=== PATIENT | male | born 1985 | race Caucasian/White ===

== ENCOUNTER 2024-04-22 14:51 | Outpatient (AMB) | payer OTHER, SELFPAY ==
--- NOTE | 2024-04-22 15:17 | A.OFFPC_ITS ---
Vital Signs 04/22/24 15:18 04/22/24 15:26 04/22/24 15:49 Height 5 ft 11.75 in Weight 221 lb 6 oz BMI 30.2 BP 160/120 H 156/118 H 138/92 H Blood Pressure Location Lt brachial Rt brachial Lt brachial Position Sitting Sitting Sitting Pulse 73 Pulse Source Pulse Oximeter Pulse Oximetry (%) 98 Oxygen Delivery Method Room Air Intake Visit Reasons: establish care Allergies No Known Allergies Allergy (Verified 04/22/24 15:30) Medication List - Last Reconciled 04/22/24 by Ledy Jose PA-C albuterol sulfate 90 mcg/actuation 2 puffs inhalation Q6H PRN fluticasone propionate 50 mcg/actuation (Flonase Allergy Relief) 2 sprays intranasal DAILY loratadine (Claritin) 10 mg PO DAILY Dental Screening Dental Screen Date: 04/22/24 Did you have a dental visit in the last 12 months?: Yes Did you have a dental problem in the last 6 months where you did not have access to dental care?: No Was dental information given to patient?: Patient has dentist HPI establish care HPI Details 38-year-old male coming to the office fo r the 1st time. Patient is not known to [facility]. Presenting with asthma, insomnia, and hypertension. Chronic asthma management includes daily use of albuterol due to lack of insurance coverage for other inhalers. Prolonged asthma control is needed. Previously treated with ICS but has not had one in many years. He reports elevated blood pressure, attributing it partly to lifestyle factors such as high-sodium intake and stress, with a strong family history of hypertension. Insomnia issues have been prominent since the COVID-19 pandemic, necessitating the informal use of trazodone for restful sleep which he has been getting from a family member. The patient is undergoing therapy for depression, engaging in regular sessions, and showing some improvement in mood balance, though he occasionally experiences sadness. [facility] Medical History (Updated 04/22/24 @ 15:41 by Ledy Jose PA-C) Testicular torsion Family History Other Diabetes FH: mental illness Social History Housing: Apartment Patient Tobacco Use Status: Never used Tobacco e-Cigarette/Vaping Use: Never Used Second Hand Smoke Exposure: No service: No Current occupational status: employed Current occupational exposures/hazards: No Cognitive needs: No Hearing needs: No Vision needs: Yes Questionnaire PHQ-9 Over the last 2 weeks, how often have you been bothered by any of the following problems? 1. Little interest or pleasure in doing things: not at all 2. Feeling down, depressed, or hopeless: several days 3. Trouble falling or staying asleep, or sleeping too much: several days 4. Feeling tired or having little energy: several days 5. Poor appetite or overeating: not at all 6. Feeling bad about yourself - or that you are a failure or have let yourself or your family down: several days 7. Trouble concentrating on things, such as reading the newspaper or watching television: not at all 8. Moving or speaking so slowly that other people could have noticed. Or the opposite - being so fidgety or restless that you have been moving around a lot more than usual: not at all 9. Thoughts that you would be better off or of hurting yourself in some way: not at all Total score: 4 Depression Screening Interpretation: Positive Depression Screening Follow-up: Existing condition and In treatment Depression Screening Done: Yes Source: Developed by Drs. Taurus Babcock, Ansley Stover, Javon Rock and colleagues, with an educational krissy from [employer]. Thrive Questionnaire Date Thrive assessed: 04/22/24 I am a: Patient What is your living situation today?: I have a steady place to live Within the past 12 months, did the food you bought not last and you didn't have the money to get more?: Never true Within the past 12 months, did you worry whether your food would run out before you got money to buy more?: Never true Do you have trouble paying for medicines?: No Do you have trouble getting transportation to medical appointments?: No Do you have trouble paying your heating and electricity bill?: No Do you have trouble taking care of your child, family member or friend?: No Do you have trouble with day-to-day activities such as bathing, preparing meals, shopping, managing finances, etc.?: No Are you currently unemployed and looking for a job?: No Are you interested in more education?: Yes Please select the resources that you would like help with: None Currently or been in a relationship where the following occur: No concerns reported THRIVE Score: 0 AUDIT C Alcohol Use Questionnaire (AUDIT-C) 1. How often do you have a drink containing alcohol?: 2-3 times a week 2. How many drinks containing alcohol do you have on a typical day when you are drinking?: 1 or 2 3. How often do you have six or more drinks on one occasion?: Less than monthly Total Score: 4 FÁTIMA-7 AMB Questionnaire FÁTIMA-7 Date FÁTIMA - 7 assessed: 04/22/24 Feeling nervous, anxious, or on edge: 2 = More than half the days Not being able to stop or control worryin = More than half the days Worrying too much about different things: 2 = More than half the days Trouble relaxin = Several days Being so restless that it is hard to sit still: 0 = Not at all Becoming easily annoyed or irritable: 0 = Not at all Feeling afraid as if something awful might happen: 0 = Not at all Total FÁTIMA-7 score (0-4 normal; 5-9 mild; 10-14 moderate; 15-21 severe): 7 Source: Developed by Drs. Taurus Babcock, Ansley Stover, Javon Rock and colleagues, with an educational krissy from [employer]. FÁTIMA-7 Assessment Billing FÁTIMA-7 Assessment Tool: FÁTIMA-7 Assessment 09435 Review of Systems Const Denies body aches, Denies chills, Denies fever(s), Denies headache(s) and Denies poor appetite Eyes Reports no additional complaints and Reports requires corrective lenses ENT Denies dizziness and Denies headache(s) Card Denies chest pain, Denies syncope, Denies lightheadedness and Denies dyspnea Resp Denies cough and Denies dyspnea GI Denies abdominal pain, Denies nausea and Denies vomiting Reports no additional complaints Musc Reports no additional complaints and Denies abnormal gait Skin/Breast Reports system reviewed and no additional complaints, except as documented Neuro Denies abnormal gait, Denies dizziness, Denies syncope and Denies headache(s) Psych Reports no additional complaints Physical exam (Primary Care) Vital Signs: Last Vital Signs Pulse 73 04/22/24 15:18 BP 138/92 H 04/22/24 15:49 Pulse Ox 98 04/22/24 15:18 Oxygen Delivery Method Room Air 04/22/24 15:18 BMI result Body Mass Index 30.2 Tobacco/Smoking Status: Tobacco use Status Patient Tobacco Use Status Never used Tobacco 04/22/24 15:26 e-Cigarette/Vaping Use Never Used 04/22/24 15:26 PHQ-9: PHQ-9 Score PHQ-9: Total score 4 04/22/24 15:38 Depression Screening Interpretation: Positive Depression Screening Follow-up: Existing condition and In treatment Thrive Assessment: Date of Thrive Assessment Date Thrive assessed 04/22/24 04/22/24 15:26 Currently or been in a relationship where the following occur: No concerns reported Const General: cooperative, healthy appearing, comfortable and no acute distress Orientation/consciousness: patient oriented x3 HENMT Head: Yes normocephalic Ears: hearing grossly normal bilaterally General nose exam: Normal external nose present Eyes General: appearance normal, both eyes and all related structures Conjunctivae: conjunctivae normal Neck Neck: Yes full ROM and Yes no lymphadenopathy Resp Effort & Inspection: normal respiratory effort Auscultation: clear to auscultation bilaterally, no crackles, no rales, no rhonchi and no wheezes Cardio Rate: regular rate Rhythm: regular rhythm Skin General skin exam: no rashes or lesions noted Neuro General: patient oriented x3 Gait exam (Neuro): Normal gait present Extrem General: Yes normal to inspection, Yes full ROM and No edema Psych Affect: normal affect Attitude: cooperative Insight: Good insight present (Psych) Judgement: Good judgement present (Psych) Coding Level of Care Code New Pt Level 4 (35548) Diagnoses Asthma J45.909 Elevated blood pressure reading without diagnosis of hypertension R03.0 Depression F32.A Plantar warts B07.0 Screening for hypercholesterolemia Z13.220 Additional Codes FÁTIMA-7 Assessment Billing - FÁTIMA-7 Assessment Tool: FÁTIMA-7 Assessment 08876 ([id number]) Assessment & Plan Assessment & Plan (1) Asthma: Code(s): J45.909 - Unspecified asthma, uncomplicated Category: Medical Plan: Will restart patient on his Advair inhaler and continue to use albuterol as needed. Avoid triggers such as allergies. (2) Elevated blood pressure reading without diagnosis of hypertension: Code(s): R03.0 - Elevated blood-pressure reading, without diagnosis of hypertension Category: Medical Plan: Advised patient to begin taking blood pressures at home and bring log to next visit. Avoid salt intake and encourage healthy diet and regular exercise. (3) Depression: Comment: therapist weekly Code(s): F32.A - Depression, unspecified Category: Medical Plan: He will be prescribed trazodone for nightly use to improve his depression and anxiety complicated by insomnia. Continue to follow with counselor weekly. (4) Plantar warts: Code(s): B07.0 - Plantar wart Category: Medical Plan: Patient having plantar warts referral placed to Dermatology for removal (5) Screening for hypercholesterolemia: Code(s): Z13.220 - Encounter for screening for lipoid disorders Category: Medical Plan: Blood work ordered Plan Patient was informed and verbally consented to the use of an ambient scribe for clinic note documentation during this visit. This note was constructed using voice recognition software. While every effort has been made to ensure accuracy and storehouse clerk, still areas may have been included sometimes these areas may affect the content or meeting of the given symptoms. Total time spent caring for the patient today was 30 minutes. This includes time spent before the visit reviewing the chart, time spent during the visit, and time spent after the visit and documentation. Orders: Orders Comprehensive Met. Panel Today Z00.00 - Encounter for general adult medical examination without abnormal findings TSH reflex Free T4 Today Z00.00 - Encounter for general adult medical examination without abnormal findings Vitamin B12 and Folate Today Z00.00 - Encounter for general adult medical examination without abnormal findings Vitamin D 25-OH Total Today Z00.00 - Encounter for general adult medical examination without abnormal findings Lipid Panel Today Z13.220 - Encounter for screening for lipoid disorders Complete Blood Count Auto Diff Today Z00.00 - Encounter for general adult medical examination without abnormal findings Free T4 (Free Thyroxine) Today Z00.00 - Encounter for general adult medical examination without abnormal findings Referrals Dermatology Referral B07.0 - Plantar wart Medications: New fluticasone propion-salmeterol 100-50 mcg/dose (Advair Diskus) 1 inh inhalation BID 60 ea 2RF trazodone 50 mg PO BEDTIME 90 tabs 1RF albuterol sulfate 90 mcg/actuation 2 puffs inhalation Q6H PRN 8.5 grams 0RF bronchospasm
[2024-04-22 15:18] VITALS: BP 160/120; PULSE 73; O2SAT 98; BMI 30.2
[2024-04-22 15:26] VITALS: BP 156/118
[2024-04-22 15:49] VITALS: BP 138/92
== END 2024-04-22 15:53 | disposition home or self-care (01) ==
DX: J45.909 Unspecified asthma, uncomplicated (principal); R03.0 Elevated blood-pressure reading, without diagnosis of hypertension; F32.A Depression, unspecified; B07.0 Plantar wart; Z13.220 Encounter for screening for lipoid disorders

== ENCOUNTER → 2024-04-22 14:51 | Outpatient (BNVA) | payer OTHER, SELFPAY | DX: J45.909 Unspecified asthma, uncomplicated (principal); R03.0 Elevated blood-pressure reading, without diagnosis of hypertension; F32.A Depression, unspecified; B07.0 Plantar wart | CPT/HCPCS: 96127; 99202 ==

== ENCOUNTER 2024-06-03 15:01 | Outpatient (AMB) | payer OTHER, SELFPAY ==
--- NOTE | 2024-06-03 15:14 | MHC.PC.OV ---
Vital Signs 06/03/24 15:16 06/03/24 15:36 Height 5 ft 11.75 in Weight 217 lb 6 oz BMI 29.7 BP 120/70 140/98 H Blood Pressure Location Lt brachial Lt brachial Position Sitting Sitting Pulse 66 Pulse Source Pulse Oximeter Temp 97.3 F Temp Source Temporal Artery Scan Pulse Oximetry (%) 99 Oxygen Delivery Method Room Air Intake Visit Reasons: pe Intake Note: Patient is here today for a physical. Maintenance Journeyman Required: No Label Drier: Not Required per policy Accompanied by: Self / Same As Patient Allergies No Known Allergies Allergy (Verified 06/03/24 15:33) Medication List - Last Reconciled 06/03/24 by Ledy Jose PA-C albuterol sulfate 90 mcg/actuation 2 puffs inhalation Q6H PRN fluticasone propion-salmeterol 100-50 mcg/dose (Advair Diskus) 1 inh inhalation BID fluticasone propionate 50 mcg/actuation (Flonase Allergy Relief) 2 sprays intranasal DAILY loratadine (Claritin) 10 mg PO DAILY trazodone 50 mg PO BEDTIME Tobacco use date assessed: 06/03/24 Dental Screening Dental Screen Date: 04/22/24 HPI pe HPI Details 38-year-old male with past medical history of asthma, depression and elevated blood pressure last seen 03/2024 coming in for annual exam. Vaccine: covid and flu and is due for Tdap The patient is a 38-year-old male presenting with essential hypertension and mental health follow-up. Has experienced high blood pressure, with notable fluctuations and peaks around 200 mmHg systolic, particularly on Fridays. Denies symptoms such as chest pain or shortness of breath. Manages depression and anxiety with trazodone, reporting some improvement in quality of sleep and mood stability. Continues to experience anxiety but notes no recent changes in medication regimen or adverse side effects. Breathing has improved since restarting his Advair PFSH Medical History Testicular torsion Family History Other Diabetes FH: mental illness Mental health disorder Social History Housing: Apartment Alcohol intake: never Patient Tobacco Use Status: Never used Tobacco e-Cigarette/Vaping Use: Never Used Second Hand Smoke Exposure: No service: No Current occupational status: employed Current occupational exposures/hazards: No Cognitive needs: No Hearing needs: No Vision needs: Yes Questionnaire Thrive Questionnaire Date Thrive assessed: 04/17/24 I am a: Patient What is your living situation today?: I have a steady place to live Within the past 12 months, did the food you bought not last and you didn't have the money to get more?: Never true Within the past 12 months, did you worry whether your food would run out before you got money to buy more?: Never true Do you have trouble paying for medicines?: No Do you have trouble getting transportation to medical appointments?: No Do you have trouble paying your heating and electricity bill?: No Do you have trouble taking care of your child, family member or friend?: No Do you have trouble with day-to-day activities such as bathing, preparing meals, shopping, managing finances, etc.?: No Are you currently unemployed and looking for a job?: No Are you interested in more education?: Yes Please select the resources that you would like help with: None Currently or been in a relationship where the following occur: No concerns reported THRIVE Score: 0 FÁTIMA-7 AMB Questionnaire FÁTIMA-7 Date FÁTIMA - 7 assessed: 04/22/24 Source: Developed by Drs. Taurus Babcock, Ansley Stover, Javon Rock and colleagues, with an educational krissy from [employer]. Review of Systems Const Denies body aches, Denies fatigue, Denies fever(s), Denies frequent falls, Denies headache(s) and Denies weakness Eyes Reports no additional complaints, Denies change in vision and Reports requires corrective lenses ENT Denies dysphagia, Denies dizziness, Denies facial pain, Denies headache(s) and Denies odynophagia Card Denies chest pain, Denies syncope, Denies irregular heart rhythm, Denies leg edema, Denies lightheadedness and Denies dyspnea Resp Denies cough and Denies dyspnea GI Denies abdominal pain, Denies constipation, Denies dysphagia, Denies dyspepsia, Denies diarrhea, Denies nausea, Denies odynophagia and Denies vomiting Denies dysuria, Denies urinary frequency, Denies urinary hesitancy and Denies urinary urgency Musc Denies back pain and Denies myalgias Skin/Breast Reports system reviewed and no additional complaints, except as documented Neuro Denies dizziness, Denies syncope, Denies frequent falls, Denies headache(s) and Denies weakness Psych Reports no additional complaints Endo Denies fatigue Physical exam (Primary Care) Vital Signs: Last Vital Signs Temp 97.3 F 06/03/24 15:16 Pulse 66 06/03/24 15:16 BP 140/98 H 06/03/24 15:36 Pulse Ox 99 06/03/24 15:16 Oxygen Delivery Method Room Air 06/03/24 15:16 BMI result Body Mass Index 29.7 Tobacco/Smoking Status: Tobacco use Status Tobacco use date assessed 06/03/24 06/03/24 15:19 Patient Tobacco Use Status Never used Tobacco 06/03/24 15:19 e-Cigarette/Vaping Use Never Used 06/03/24 15:19 Thrive Assessment: Date of Thrive Assessment Date Thrive assessed 04/17/24 06/03/24 15:19 Currently or been in a relationship where the following occur: No concerns reported Const General: cooperative, healthy appearing, comfortable and no acute distress Orientation/consciousness: patient oriented x3 HENMT Head: Yes normocephalic Ears: hearing grossly normal bilaterally, external ears normal, TM's normal bilaterally and EAC's normal General nose exam: Normal external nose present Face and sinus: Yes normal facial exam and Yes sinuses nontender Mouth: Normal oral and palatal mucosa present and tongue normal Throat: Yes posterior oropharynx normal Eyes General: appearance normal, both eyes and all related structures Conjunctivae: conjunctivae normal Pupils: Equal, round and reactive pupils present EOM: EOMs intact bilaterally and No Nystagmus present Neck Neck: Yes normal visual inspection, Yes full ROM and Yes no lymphadenopathy Chest Chest palpation & inspection: normal inspection of the chest Resp Effort & Inspection: normal respiratory effort Auscultation: clear to auscultation bilaterally, no crackles, no rales, no rhonchi, no wheezes and breath sounds present Cardio Rate: regular rate Rhythm: regular rhythm Peripheral pulses: radial pulses present and dorsalis pedis present GI Inspection: Yes normal to inspection and No Abdominal wall edema Palpation (GI): Soft to palpation, not firm and nontender Auscultation: normal bowel sounds Rectal Exam - Male: Yes deferred General: Yes no CVA tenderness Back/Spine/Pelvis Back: no CVA tenderness Skin General skin exam: no rashes or lesions noted Neuro General: patient oriented x3 Cranial nerves: Yes Equal, round and reactive pupils present, Yes Midline tongue present, Yes Ability to bilaterally elevate shoulders present and No Nystagmus present Gait exam (Neuro): Normal gait present Extrem General: Yes normal to inspection, Yes full ROM, No no pedal edema and No edema Psych Speech and movement: Normal speech and movement present Affect: normal affect Insight: Good insight present (Psych) Judgement: Good judgement present (Psych) Immunizations Boostrix Tdap 2.5 Lf unit-8 mcg-5 Lf/0.5 mL intramuscular syringe Performing Provider: Ledy Jose PA-C [facility] Administered by: Korin Casillas LPN on 06/03/24 15:54 Dose Route Admin Location Dispensed Lot Number Expiration Date [facility] Fitness Supervisor 0.5 mL IM Right Deltoid 0.5 mL [id number] 08/09/26 21122-962-61 redIT VIS Given Date VIS Provided VIS Publication Date 06/03/24 Single Vaccine 20 Eligibility Eligibility Date Funding Source Not [facility] Eligible 06/03/24 Private Coding Level of Care Code Est Pt Level 3 (46716) Est Pt Prev Care 18-39y(00481) Diagnoses Plantar warts B07.0 Depression F32.A Asthma J45.909 Annual physical exam Z00.00 Hypertension I10 Insomnia G47.00 Assessment & Plan Assessment & Plan (1) Plantar warts: Code(s): B07.0 - Plantar wart Category: Medical Plan: Patient having plantar warts referral placed to Dermatology for removal at last visit. (2) Depression: Comment: therapist weekly Code(s): F32.A - Depression, unspecified Category: Medical Plan: Patient was started on trazodone at his last visit for anxiety and depression. Feels good on the 50mg Trazodone at this time and does not want to increase at this time. Continue to follow with counselor. (3) Asthma: Code(s): J45.909 - Unspecified asthma, uncomplicated Category: Medical Plan: Asthma currently controlled on present medications. Continue on Advair and albuterol as needed. Avoid triggers such as allergies. Avoid triggers such as allergies. (4) Annual physical exam: Code(s): Z00.00 - Encounter for general adult medical examination without abnormal findings Category: Medical Plan: Patient is up-to-date on all recommended routine screenings and vaccinations for his age. Healthy diet and regular exercise is encouraged. (5) Hypertension: Code(s): I10 - Essential (primary) hypertension Category: Medical Plan: Blood pressure readings elevated on his at-home log. Plan to start on Lisinopril 5mg for blood pressure management. Avoid salt intake and encourage healthy diet and regular exercise. (6) Insomnia: Code(s): G47.00 - Insomnia, unspecified Category: Medical Plan: Continue on trazodone 50 mg finds this medication beneficial. Plan Ordered a fasting cholesterol test to re-evaluate lipid levels and potential treatment alterations. Emphasized home monitoring of blood pressure and return precautions for side effects like cough or swelling. Follow-up scheduled in six weeks to reassess blood pressure control and mental health status, and address further cholesterol management post-lab results. This note was constructed using voice recognition software. While every effort has been made to ensure accuracy and machine former, still areas may have been included sometimes these areas may affect the content or meeting of the given symptoms. Total time spent caring for the patient today was 30 minutes. This includes time spent before the visit reviewing the chart, time spent during the visit, and time spent after the visit and documentation. Patient was informed and verbally consented to the use of an ambient scribe for clinic note documentation during this visit. Orders: Orders TDaP Immunization Today Z23 - Encounter for immunization Medications: New lisinopril 5 mg PO DAILY 60 tabs 0RF
[2024-06-03 15:16] VITALS: BP 120/70; PULSE 66; TEMP 36.3; O2SAT 99; BMI 29.7
[2024-06-03 15:36] VITALS: BP 140/98
== END 2024-06-03 15:56 | disposition home or self-care (01) ==
LOC: HO.HMCH 15:01
DX: Z00.00 Encounter for general adult medical examination without abnormal findings (principal); I10 Essential (primary) hypertension; F32.A Depression, unspecified; J45.909 Unspecified asthma, uncomplicated; B07.0 Plantar wart; G47.00 Insomnia, unspecified; Z23 Encounter for immunization

== ENCOUNTER → 2024-06-03 15:01 | Outpatient (BNVA) | payer OTHER, SELFPAY | DX: Z00.00 Encounter for general adult medical examination without abnormal findings (principal); J45.909 Unspecified asthma, uncomplicated; B07.0 Plantar wart; F32.A Depression, unspecified; I10 Essential (primary) hypertension; G47.00 Insomnia, unspecified; Z23 Encounter for immunization | CPT/HCPCS: 90471; 90715; 99212; 99395 ==

== ENCOUNTER 2024-07-11 06:59 | Outpatient (REF) | payer OTHER, SELFPAY ==
[2024-07-11 07:13] LABS: MANUAL DIFF FLAG NO
[2024-07-11 07:48] LABS: Basophils Percent Auto 0.2 % (0-2); Eosinophils Absolute Auto 0.2 X10*3/uL (0.0-0.4); Eosinophils Percent Auto 3.6 % (0-4); Hematocrit 44.3 % (42.0-52.0); Hemoglobin 15.3 g/dl (14.0-18.0); Imm Gran Abs Auto 0.02 X10*3/uL (0.00-0.03); Imm Gran Pct Auto 0.4 % (0.0-0.4); Lymphocytes Absolute Auto 1.5 X10*3/uL (1.2-4.9); Lymphocytes Percent Auto 30.7 % (20-40); Mean Corpuscular HGB Conc 34.5 g/dl (31.0-36.0); Mean Corpuscular Hemoglobin 31.5 pg (27.0-33.0); Mean Corpuscular Volume 91.2 fL (80.0-98.0); Mean Platelet Volume 8.8 fL (9.4-12.4); Monocytes Absolute Auto 0.7 X10*3/uL (0.1-1.2); Monocytes Percent Auto 13.9 % (2-11); Neutrophils Absolute Auto 2.6 x10*3/uL (2.0-8.3); Neutrophils Percent Auto 51.2 % (45-73); Platelet Count 266 X10*3/uL (160-400); Red Blood Count 4.86 X10*6/uL (4.60-5.80); Red Cell Distribution Width 11.8 % (11.0-16.0)
[2024-07-11 08:30] LABS: Alanine Aminotransferase 184 U/L (0-40); Albumin Level 4.6 g/dL (3.5-5.0); Alkaline Phosphatase 66 U/L (39-117); Anion Gap 10 (12-20); Aspartate Amino Transferase 461 U/L (5-37); Bilirubin Total 0.4 mg/dL (0.0-1.0); Blood Urea Nitrogen 18 mg/dL (9-16); Calcium 9.8 mg/dL (8.4-10.2); Carbon Dioxide 26 mmol/L (22-29); Chloride 108 mmol/L (96-108); Cholesterol 181 mg/dL (<200); Estimated Glomerular Filt Rate > 60; Glucose Random 96 mg/dL (60-115); HDL Cholesterol 50 mg/dL (>40); LDL Cholesterol Calculated 117 mg/dL (<100); Sodium 140 mmol/L (135-145); Total Protein 7.7 g/dL (6.5-8.0); Triglycerides 71 mg/dL (<150)
[2024-07-11 08:53] LABS: Free T4 (Free Thyroxine) 0.69 ng/dL (0.71-1.85); TSH reflex Free T4 2.45 uIU/mL (0.32-4.0); Vitamin D 25-OH Total 30.7 ng/mL (>30)
[2024-07-11 09:08] LABS: Folate 7.9 ng/mL (> or = 4.0); Vitamin B12 472 pg/mL (200-900)
== END 2024-07-11 07:00 | disposition home or self-care (01) ==
LOC: HO.LAB 06:59
DX: Z00.00 Encounter for general adult medical examination without abnormal findings (principal); Z13.220 Encounter for screening for lipoid disorders
CPT/HCPCS: 36415; 80053; 80061; 82306; 82607; 82746; 84439; 84443; 85025

== ENCOUNTER 2024-07-15 14:51 | Outpatient (AMB) | payer OTHER, SELFPAY ==
[2024-07-15 14:59] VITALS: BP 120/70; PULSE 75; TEMP 36.3; O2SAT 98; BMI 30.1
--- NOTE | 2024-07-15 14:59 | A.OFFPC_ITS ---
Vital Signs 07/15/24 14:59 Height 5 ft 11.75 in Weight 220 lb 8 oz BMI 30.1 BP 120/70 Blood Pressure Location Lt brachial Position Sitting Pulse 75 Pulse Source Pulse Oximeter Temp 97.3 F Temp Source Temporal Artery Scan Pulse Oximetry (%) 98 Oxygen Delivery Method Room Air Intake Visit Reasons: f/u BP Intake Note: Patient is here to follow up on BP check. Manager Benefit Required: No Twister Tender: Not Required per policy Accompanied by: Self / Same As Patient Allergies No Known Allergies Allergy (Verified 07/15/24 15:15) Medication List - Last Reconciled 07/15/24 by Ledy Jose PA-C albuterol sulfate 90 mcg/actuation 2 puffs inhalation Q6H PRN fluticasone propion-salmeterol 100-50 mcg/dose (Advair Diskus) 1 inh inhalation BID fluticasone propionate 50 mcg/actuation (Flonase Allergy Relief) 2 sprays intranasal DAILY lisinopril 5 mg PO DAILY loratadine (Claritin) 10 mg PO DAILY trazodone 50 mg PO BEDTIME Tobacco use date assessed: 07/15/24 Dental Screening Dental Screen Date: 04/22/24 HPI f/u BP HPI Details 38-year-old male with past medical histo ry of asthma, depression, hypertension and elevated LFTs last seen 05/2024 coming in for follow up. Presenting with management of hypertension, elevated liver enzymes, and evaluation/management of possible depression and anxiety.The patient is currently taking lisinopril 5 mg daily for essential hypertension, but home blood pressure readings remain elevated, with a significant reading of 192 mmHg noted on one occasion. He denies symptoms such as headaches or vision disturbances associated with hypertension. Recent laboratory tests revealed significantly elevated hepatic enzyme levels (AST 461 U/L, ALT 184 U/L) without associated symptoms. Alcohol consumption is described as biweekly. The patient reports periods of feeling low and withdrawn, particularly noticeable at work, although trazodone is taken for sleep, which is potentially beneficial for depressive symptoms. There is a noted concern regarding anxiety, and the patient has expressed interest in potential medication intervention. PFSH Medical History Testicular torsion Family History Other Diabetes FH: mental illness Mental health disorder Social History Housing: Apartment Alcohol intake: never Patient Tobacco Use Status: Never used Tobacco e-Cigarette/Vaping Use: Never Used Second Hand Smoke Exposure: No service: No Current occupational status: employed Current occupational exposures/hazards: No Cognitive needs: No Hearing needs: No Vision needs: Yes Questionnaire Thrive Questionnaire Date Thrive assessed: 04/17/24 I am a: Patient What is your living situation today?: I have a steady place to live Within the past 12 months, did the food you bought not last and you didn't have the money to get more?: Never true Within the past 12 months, did you worry whether your food would run out before you got money to buy more?: Never true Do you have trouble paying for medicines?: No Do you have trouble getting transportation to medical appointments?: No Do you have trouble paying your heating and electricity bill?: No Do you have trouble taking care of your child, family member or friend?: No Do you have trouble with day-to-day activities such as bathing, preparing meals, shopping, managing finances, etc.?: No Are you currently unemployed and looking for a job?: No Are you interested in more education?: Yes Please select the resources that you would like help with: None Currently or been in a relationship where the following occur: No concerns reported THRIVE Score: 0 FÁTIMA-7 AMB Questionnaire FÁTIMA-7 Date FÁTIMA - 7 assessed: 04/22/24 Source: Developed by Drs. Taurus Babcock, Ansley Stover, Javon Rock and colleagues, with an educational krissy from [employer]. Review of Systems Const Denies body aches, Denies chills, Denies fever(s), Denies headache(s) and Denies poor appetite Eyes Reports no additional complaints ENT Denies dizziness and Denies headache(s) Card Denies chest pain, Denies lightheadedness and Denies dyspnea Resp Denies cough and Denies dyspnea GI Denies abdominal pain, Denies constipation, Denies diarrhea, Denies nausea and Denies vomiting Reports no additional complaints Musc Reports no additional complaints and Denies abnormal gait Skin/Breast Reports system reviewed and no additional complaints, except as documented Neuro Denies abnormal gait, Denies dizziness and Denies headache(s) Psych Reports no additional complaints Physical exam (Primary Care) Vital Signs: Last Vital Signs Temp 97.3 F 07/15/24 14:59 Pulse 75 07/15/24 14:59 BP 120/70 07/15/24 14:59 Pulse Ox 98 07/15/24 14:59 Oxygen Delivery Method Room Air 07/15/24 14:59 BMI result Body Mass Index 30.1 Tobacco/Smoking Status: Tobacco use Status Tobacco use date assessed 07/15/24 07/15/24 15:08 Patient Tobacco Use Status Never used Tobacco 07/15/24 15:08 e-Cigarette/Vaping Use Never Used 07/15/24 15:08 Thrive Assessment: Date of Thrive Assessment Date Thrive assessed 04/17/24 07/15/24 15:08 Currently or been in a relationship where the following occur: No concerns reported Const General: cooperative, healthy appearing, comfortable and no acute distress Orientation/consciousness: patient oriented x3 HENMT Head: Yes normocephalic Ears: hearing grossly normal bilaterally General nose exam: Normal external nose present Eyes General: appearance normal, both eyes and all related structures Conjunctivae: conjunctivae normal Neck Neck: Yes full ROM and Yes no lymphadenopathy Resp Effort & Inspection: normal respiratory effort Auscultation: clear to auscultation bilaterally, no crackles, no rales, no rh onchi and no wheezes Cardio Rate: regular rate Rhythm: regular rhythm Skin General skin exam: no rashes or lesions noted Neuro General: patient oriented x3 Gait exam (Neuro): Normal gait present Extrem General: Yes normal to inspection, Yes full ROM and No edema Psych Affect: normal affect Attitude: cooperative Insight: Good insight present (Psych) Judgement: Good judgement present (Psych) Coding Level of Care Code Est Pt Level 3 (42547) Diagnoses Depression F32.A Asthma J45.909 Hypertension I10 Elevated LFTs R79.89 Decreased libido R68.82 Assessment & Plan Assessment & Plan (1) Depression: Comment: therapist weekly Code(s): F32.A - Depression, unspecified Category: Medical Plan: Patient was started on trazodone at his last visit for anxiety and depression. He would like to try additional medication plan to start on sertraline 25 mg. Continue to follow with therapist and follow up in 2 months. Discussed side effects of this medication patient agrees to reach out if he develops any of the symptoms. (2) Asthma: Code(s): J45.909 - Unspecified asthma, uncomplicated Category: Medical Plan: Asthma currently controlled on present medications. Continue on Advair and albuterol as needed. Avoid triggers such as allergies. Avoid triggers such as allergies. (3) Hypertension: Code(s): I10 - Essential (primary) hypertension Category: Medical Plan: Blood pressure readings elevated on his at-home log. Most values are aircraft engineer shortly after initiation of lisinopril. Plan to continue on lisinopril as his blood pressure is well controlled today 118/82. Avoid salt intake and encourage healthy diet and regular exercise. (4) Elevated LFTs: Code(s): R79.89 - Other specified abnormal findings of blood chemistry Category: Medical Plan: Patient having significantly elevated LFTs plan to initiate workup through blood work and abdominal ultrasound. Advised patient to abstain from alcohol use and Tylenol. (5) Decreased libido: Code(s): R68.82 - Decreased libido Category: Medical Plan: Patient reporting decreased libido requesting testosterone levels. Blood work was ordered and plan to treat depression as this can sometimes result in decreased libido. Plan The patient's management plan involves continued lifestyle modifications to address hypertension, with possible adjustments to lisinopril therapy upon review of future blood pressure readings. Elevated liver enzymes are being evaluated through further diagnostic testing, including specific lab panels and liver ultrasound, to identify underlying causes. For mood disturbances, particularly depression and anxiety, sertraline has been initiated to assess impact, accompanied by a scheduled follow-up to evaluate effectiveness. Ongoing attention to lifestyle changes and nutritional counseling will address lipid management, with the aim of reducing cardiovascular risks. Additionally, the assessment of testosterone levels will aid in identifying contributing factors to the patient's concern of decreased libido. This note was constructed using voice recognition software. While every effort has been made to ensure accuracy and senior mechanical estimator, still areas may have been included sometimes these areas may affect the content or meeting of the given symptoms. Total time spent caring for the patient today was 20 minutes. This includes time spent before the visit reviewing the chart, time spent during the visit, and time spent after the visit and documentation. Patient was informed and verbally consented to the use of an ambient scribe for clinic note documentation during this visit. Orders: Orders Testosterone, Free/Total Today R68.82 - Decreased libido Medications: New sertraline 25 mg PO DAILY 30 tabs 0RF Refilled fluticasone propion-salmeterol 100-50 mcg/dose (Advair Diskus) 1 inh inhalation BID 60 ea 2RF trazodone 50 mg PO BEDTIME 90 tabs 1RF
== END 2024-07-15 15:39 | disposition home or self-care (01) ==
LOC: HO.HMCH 14:52
DX: F32.A Depression, unspecified (principal); J45.909 Unspecified asthma, uncomplicated; I10 Essential (primary) hypertension; R79.89 Other specified abnormal findings of blood chemistry; R68.82 Decreased libido

== ENCOUNTER 2024-07-15 14:51 | Outpatient (REF) | payer OTHER, SELFPAY ==
[2024-07-15 17:59] LABS: Iron 118 mcg/dL (45-160); Percent Iron Saturation 42 % (15-50); Total Iron Binding Capacity 278 mcg/dL (228-428); Unsaturated Iron Binding 160 ug/dL
[2024-07-15 18:06] LABS: Ferritin 265 ng/mL (20-250)
[2024-07-16 03:38] LABS: HBc Num1 0.17 S/CO (0.00-0.79); HBsAGNum1 0.35 S/CO (0.00-0.99); Hepatitis B Core Antibody Nonreactive (Nonreactive); Hepatitis B Surface Antigen Negative (Negative); ~HepC Num1 0.13 S/CO (0.00-0.79); ~Hepatitis B Surface Antibody REACTIVE (Nonreactive); ~Hepatitis C Antibody Nonreactive (Nonreactive)
[2024-07-16 04:34] LABS: Ceruloplasmin 22 mg/dL (14-30)
[2024-07-17 16:08] LABS: Anti Nuclear Antibody Screen NEGATIVE (NEGATIVE)
[2024-07-20 15:34] LABS: Testosterone, Free 48.8 pg/mL (35.0-155.0); Testosterone, Total 271 ng/dL (250-1100)
== END 2024-07-15 14:52 | disposition home or self-care (01) ==
LOC: HO.LAB 14:51
DX: F32.A Depression, unspecified (principal); J45.909 Unspecified asthma, uncomplicated; I10 Essential (primary) hypertension; R79.89 Other specified abnormal findings of blood chemistry; R68.82 Decreased libido
CPT/HCPCS: 36415; 82390; 82728; 83540; 84402; 84403; 86038; 86704; 86706; 86803; 87340; 99212

== ENCOUNTER 2024-07-24 09:14 | Outpatient (REF) | payer OTHER, SELFPAY ==
--- NOTE | ~2024-07-24 | US_ITS ---
CLINICAL HISTORY: R79.89 - elevated lfts US abdomen limited with color Doppler Comparison: None Findings: Visualized pancreas is normal. Tail obscured by bowel gas. Liver is normal in size and echotexture. No focal hepatic masses. Common duct 2.6 mm diameter. Gallbladder is physiologically distended. No gallstones, sludge or wall abnormalities. No gallbladder wall thickening. No pericholecystic fluid. No sonographic Contreras sign. Right kidney measures, 10.9 cm in length. Normal cortical width and echotexture. No hydronephrosis calculus or mass. Impression: 1. Normal right upper quadrant ultrasound This document has been electronically signed by: Rome Gonsalves MD on 07/24/2024 15:14:09
== END 2024-07-24 09:15 | disposition home or self-care (01) ==
LOC: HO.HMGCX 09:14
DX: R79.89 Other specified abnormal findings of blood chemistry (principal)
CPT/HCPCS: 76705

== ENCOUNTER → 2024-07-24 09:17 | Outpatient (BNV) | payer OTHER, SELFPAY | PROVIDERS: Visit Provider Radiology Diagnostic Radiology | DX: R74.01 Elevation of levels of liver transaminase levels (principal) | CPT/HCPCS: 76705 ==

== ENCOUNTER 2024-08-15 06:51 | Outpatient (REF) | payer OTHER, SELFPAY ==
[2024-08-15 07:44] LABS: Alanine Aminotransferase 56 U/L (0-40); Albumin Level 4.7 g/dL (3.5-5.0); Alkaline Phosphatase 52 U/L (39-117); Aspartate Amino Transferase 39 U/L (5-37); Bilirubin Direct 0.2 mg/dL (0.0-0.5); Bilirubin Total 0.7 mg/dL (0.0-1.0); Total Protein 7.3 g/dL (6.5-8.0)
== END 2024-08-15 06:52 | disposition home or self-care (01) ==
LOC: HO.LAB 06:51
DX: R79.89 Other specified abnormal findings of blood chemistry (principal)
CPT/HCPCS: 36415; 80076

== ENCOUNTER 2024-09-15 14:25 | Outpatient (AMB) | payer OTHER, SELFPAY ==
--- NOTE | 2024-09-15 14:30 | A.OFFPC_ITS ---
Vital Signs 09/15/24 14:32 Height 5 ft 11.75 in Weight 222 lb 3 oz BMI 30.3 BP 136/70 Blood Pressure Location Lt brachial Position Sitting Pulse 74 Pulse Oximetry (%) 98 Intake Visit Reasons: f/u depression Broker Assistant Required: No Accompanied by: Self / Same As Patient Allergies No Known Allergies Allergy (Verified 09/15/24 14:53) Medication List - Last Reconciled 09/15/24 by Ledy Jose PA-C albuterol sulfate 90 mcg/actuation 2 puffs inhalation Q6H PRN fluticasone propion-salmeterol 100-50 mcg/dose (Advair Diskus) 1 inh inhalation BID fluticasone propionate 50 mcg/actuation (Flonase Allergy Relief) 2 sprays intranasal DAILY lisinopril 5 mg PO DAILY loratadine (Claritin) 10 mg PO DAILY sertraline 25 mg PO DAILY trazodone 50 mg PO BEDTIME Tobacco use date assessed: 09/15/24 Dental Screening Dental Screen Date: 09/15/24 HPI f/u depression HPI Details 39-year-old male with past medical histo ry of asthma, depression, hypertension and elevated LFTs last seen 06/2024 coming in for follow up. Pesenting with depression, insomnia, and elevated liver function tests. The patient was started on sertraline, initially at a low dose of 25 mg, which will be increased to 50 mg due to suboptimal response. The patient reports that sertraline helps manage depressive symptoms, although some thoughts persist. The patient continues to take trazodone at night to aid sleep. Initial LFTs showed significantly elevated levels, which have since decreased but remain above normal. The cause remains unidentified despite normal abdominal ultrasound and other lab results. The patient is advised to avoid potential liver irritants such as excessive alcohol and acetaminophen. The patient is on lisinopril, which has effectively managed blood pressure, with recent readings showing improvement. Kidney function is monitored biannually due to lisinopril use. COUNT INCLUDES THE [facility] Medical History Testicular torsion Family History Other Diabetes FH: mental illness Mental health disorder Social History Housing: Apartment Alcohol intake: never Patient Tobacco Use Status: Never used Tobacco e-Cigarette/Vaping Use: Never Used Second Hand Smoke Exposure: No service: No Current occupational status: employed Current occupational exposures/hazards: No Cognitive needs: No Hearing needs: No Vision needs: Yes Questionnaire Thrive Questionnaire Date Thrive assessed: 09/15/24 I am a: Patient What is your living situation today?: I have a steady place to live Within the past 12 months, did the food you bought not last and you didn't have the money to get more?: Never true Within the past 12 months, did you worry whether your food would run out before you got money to buy more?: Never true Do you have trouble paying for medicines?: No Do you have trouble getting transportation to medical appointments?: No Do you have trouble paying your heating and electricity bill?: No Do you have trouble taking care of your child, family member or friend?: No Do you have trouble with day-to-day activities such as bathing, preparing meals, shopping, managing finances, etc.?: No Are you currently unemployed and looking for a job?: No Are you interested in more education?: Yes Please select the resources that you would like help with: None Currently or been in a relationship where the following occur: No concerns reported THRIVE Score: 0 FÁTIMA-7 AMB Questionnaire FÁTIMA-7 Date FÁTIMA - 7 assessed: 09/15/24 Source: Developed by Drs. Taurus Babcock, Ansley Stover, Javon Rock and colleagues, with an educational krissy from [employer]. Review of Systems Const Denies body aches, Denies chills, Denies fever(s), Denies headache(s) and Denies poor appetite Eyes Reports no additional complaints ENT Denies dizziness and Denies headache(s) Card Denies chest pain and Denies dyspnea Resp Denies dyspnea GI Denies nausea and Denies vomiting Reports no additional complaints Skin/Breast Reports system reviewed and no additional complaints, except as documented Neuro Denies dizziness and Denies headache(s) Psych Reports no additional complaints Physical exam (Primary Care) Tobacco/Smoking Status: Tobacco use Status Tobacco use date assessed 09/15/24 09/15/24 14:31 Patient Tobacco Use Status Never used Tobacco 09/15/24 14:31 e-Cigarette/Vaping Use Never Used 09/15/24 14:31 Thrive Assessment: Date of Thrive Assessment Date Thrive assessed 09/15/24 09/15/24 14:31 Currently or been in a relationship where the following occur: No concerns reported Const General: cooperative, healthy appearing, comfortable and no acute distress Orientation/consciousness: patient oriented x3 HENMT Head: Yes normocephalic Ears: hearing grossly normal bilaterally General nose exam: Normal external nose present Eyes General: appearance normal, both eyes and all related structures Conjunctivae: conjunctivae normal Neck Neck: Yes full ROM and Yes no lymphadenopathy Resp Effort & Inspection: normal respiratory effort Auscultation: clear to auscultation bilaterally, no crackles, no rales, no rhonchi and no wheezes Cardio Rate: regular rate Rhythm: regular rhythm Skin General skin exam: no rashes or lesions noted Neuro General: patient oriented x3 Gait exam (Neuro): Normal gait present Extrem General: Yes normal to inspection, Yes full ROM and No edema Psych Affect: normal affect Attitude: cooperative Insight: Good insight present (Psych) Judgement: Good judgement present (Psych) Coding Level of Care Code Est Pt Level 3 (64961) Diagnoses Mild episode of recurrent major depressive disorder F33.0 Depression Type: major depressive disorder Major depression recurrence: recurrent Active/Remission status: currently active Major depression episode severity: mild Primary hypertension I10 Hypertension type: primary hypertension Decreased libido R68.82 Primary insomnia F51.01 Insomnia type: primary Mild intermittent asthma without complication J45.20 Asthma severity: mild Asthma persistence: intermittent Asthma complication type: uncomplicated Assessment & Plan Assessment & Plan (1) Depression: Comment: therapist weekly Code(s): F32.A - Depression, unspecified Category: Medical Qualifiers: Depression Type: major depressive disorder Major depression recurrence: recurrent Active/Remission status: currently active Major depression episode severity: mild Qualified Code(s): F33.0 - Major depressive disorder, recurrent, mild Plan: For his depression he feels good benefit from sertraline 25 mg however feels he will be better managed with the higher dose. Sertraline 50 mg was sent to pharmacy today. (2) Hypertension: Code(s): I10 - Essential (primary) hypertension Category: Medical Qualifiers: Hypertension type: primary hypertension Qualified Code(s): I10 - Essential (primary) hypertension Plan: Continue on current blood pressure medication. Avoid salt intake and encourage healthy diet and regular exercise. (3) Decreased libido: Code(s): R68.82 - Decreased libido Category: Medical Plan: Patient reporting decreased libido requesting testosterone levels. Blood work revealed low normal testosterone levels he has a appointment with Urology in September. (4) Insomnia: Code(s): G47.00 - Insomnia, unspecified Category: Medical Qualifiers: Insomnia type: primary Qualified Code(s): F51.01 - Primary insomnia Plan: Patient feels well managed on trazodone 50 mg as needed (5) Asthma: Code(s): J45.909 - Unspecified asthma, uncomplicated Category: Medical Qualifiers: Asthma severity: mild Asthma persistence: intermittent Asthma complication type: uncomplicated Qualified Code(s): J45.20 - Mild intermittent asthma, uncomplicated Plan: Asthma currently controlled on present medications. Continue on Wixela and albuterol as needed. Avoid triggers such as allergies. Has been using albuterol infrequently Plan The patient will continue with sertraline, now increased to 50 mg, to better manage depressive symptoms. Trazodone will remain part of the regimen to assist with sleep. The patient is advised to monitor for any side effects and report if symptoms persist or worsen. For the elevated liver function tests, the patient is advised to avoid potential liver irritants such as excessive alcohol and acetaminophen. Regular monitoring of liver function will continue, and the patient is scheduled to see a bag sorter for further evaluation. Hypertension management with lisinopril will continue, with blood pressure and kidney function monitored regularly. The patient is encouraged to maintain regular exercise and weight monitoring as part of overall health maintenance. Asthma management with Advair is effective, and the patient reports no need for albuterol. The patient is advised to continue current asthma management and report any changes in symptoms. This note was constructed using voice recognition software. While every effort has been made to ensure accuracy and diamond setter, still areas may have been included sometimes these areas may affect the content or meeting of the given symptoms. Total time spent caring for the patient today was 20 minutes. This includes time spent before the visit reviewing the chart, time spent during the visit, and time spent after the visit and documentation. Patient was informed and verbally consented to the use of an ambient scribe for clinic note documentation during this visit. Orders: Orders Comprehensive Met. Panel 2 Months I10 - Essential (primary) hypertension, R79.89 - Other specified abnormal findings of blood chemistry Referrals Dermatology Referral B07.0 - Plantar wart Medications: New sertraline 50 mg PO DAILY 90 tabs 1RF Discontinued sertraline Discontinued Reason: Patient no longer taking 25 mg PO DAILY 90 tabs 1RF
[2024-09-15 14:32] VITALS: BP 136/70; PULSE 74; O2SAT 98; BMI 30.3
== END 2024-09-15 14:59 | disposition home or self-care (01) ==
LOC: HO.HMCH 14:26
DX: F33.0 Major depressive disorder, recurrent, mild (principal); I10 Essential (primary) hypertension; R68.82 Decreased libido; F51.01 Primary insomnia; J45.20 Mild intermittent asthma, uncomplicated

== ENCOUNTER → 2024-09-15 14:25 | Outpatient (BNVA) | payer OTHER, SELFPAY | DX: I10 Essential (primary) hypertension (principal); F33.0 Major depressive disorder, recurrent, mild; R68.82 Decreased libido; F51.01 Primary insomnia; J45.20 Mild intermittent asthma, uncomplicated; B07.0 Plantar wart; R79.89 Other specified abnormal findings of blood chemistry | CPT/HCPCS: 99212 ==

== ENCOUNTER 2024-10-06 08:00 | Outpatient (AMB) | payer OTHER, SELFPAY ==
--- NOTE | 2024-10-06 08:09 | MHC.OFFVIS ---
Intake Visit Reasons: decreased libido/low testosterone Intake Note: New patient presents today for initial visit for decreased libido/low testosterone 07/15 Testosterone:271 Free Testosterone:48.8 Urology Medication:None Blood Thinner:None Antibiotic Allergies:None Allergies No Known Allergies Allergy (Verified 10/06/24 09:06) Medication List - Last Reconciled 10/06/24 by Tosha Aggarwal DIRECTOR OF OUTSIDE SALES- albuterol sulfate 90 mcg/actuation 2 puffs inhalation Q6H PRN fluticasone propion-salmeterol 100-50 mcg/dose (Advair Diskus) 1 inh inhalation BID fluticasone propionate 50 mcg/actuation (Flonase Allergy Relief) 2 sprays intranasal DAILY lisinopril 5 mg PO DAILY loratadine (Claritin) 10 mg PO DAILY sertraline 50 mg PO DAILY tadalafil (Cialis) 5 mg PO DAILY 90 days trazodone 50 mg PO BEDTIME HPI Comments Details: Dave is a very pleasant 39-year-old male patient of . He has a past medical history of testicular torsion, asthma, depression, hypertension and elevated LFTs. He presents to the office today as a new patient for borderline low testosterone. In discussion with the patient today he reports noting over the last year he has been having issues with low libido. He discusses having gone through a breakup last year and shortly after was diagnosed with depression. He reports noting issues with his libido and following up with his PCP at which time his testosterone labs were drawn and recommendations were made for urology referral for further assessment evaluation. These results were reviewed and communicated with the patient today as noted and trended below. Testosterone: 07/20 271 Free testosterone: 07/20 48.8 We discussed potential causes of borderline low testosterone. We discussed further treatment options and risks and benefits of these treatment options. We discussed further workup to include labs. We also discussed lifestyle modifications to assist with low libido as well as borderline low testosterone. He otherwise denies any bothersome urinary issues. He denies urinary urgency, urinary frequency, incontinence, nocturia, hematuria, dysuria, foul smelling urine, changes to urinary stream, flank pain, fever, and or chills. He is happy with his current voiding parameters. All questions were answered. When asked he denies any recreational drug use, anabolic steroids, or previous illness that could have caused hypogonadism. However, he does have a previous history of testicular torsion. He otherwise offers no other issues or concerns at this time. We discussed the patient's low libido and the potential link to low testosterone levels, which may be influenced by depression experienced after a significant life event. I explained the need for additional blood work for further assessment evaluation. I advised the patient on lifestyle modifications, including regular exercise and good sleep hygiene, to naturally boost testosterone levels. We also discussed the use of low-dose Cialis as a potential treatment to increase testosterone levels over time. Plan Further blood tests will be conducted to determine the cause of low testosterone, focusing on testicular and pituitary function. The patient is advised to engage in regular exercise and maintain good sleep hygiene to naturally support testosterone production. Low-dose Cialis has been prescribed to aid in increasing testosterone levels over time. [facility] Medical History Testicular torsion Family History Other Diabetes FH: mental illness Mental health disorder Social History Housing: Apartment Alcohol intake: never Patient Tobacco Use Status: Never used Tobacco e-Cigarette/Vaping Use: Never Used Second Hand Smoke Exposure: No service: No Current occupational status: employed Current occupational exposures/hazards: No Cognitive needs: No Hearing needs: No Vision needs: Yes Review of Systems Const All systems reviewed & are unremarkable except as noted in HPI and below Physical Exam Const General: cooperative, healthy appearing, comfortable, no acute distress, well developed, alert and awake Orientation/consciousness: patient oriented x3 Limitations: no limitations HEENT Head: Yes normal to inspection, Yes normocephalic and Yes atraumatic Ears: hearing grossly normal bilaterally Eyes General: appearance normal, both eyes and all related structures Neck Neck: Yes normal visual inspection and Yes trachea midline Chest Chest palpation & inspection: normal inspection of the chest Resp Effort & Inspection: normal respiratory effort and able to speak in complete sentences Cardio Rate: regular rate GI Inspection: Yes normal to inspection General: Yes no CVA tenderness Back/Spine/Pelvis Back: no CVA tenderness Skin General skin exam: no rashes or lesions noted Neuro General: patient oriented x3 Extrem General: Yes normal to inspection Psych Appearance: grossly normal and well kempt Mental Status: mental status grossly normal Speech and movement: Normal speech and movement present and Clear speech present Affect: normal affect Attitude: cooperative Thought process: Normal thought process present Thought content: Normal thought content present Insight: Fair insight present (Psych) Judgement: Fair judgement present (Psych) Assessment & Plan Assessment & Plan (1) Hypogonadism in male: Code(s): E29.1 - Testicular hypofunction Category: Medical (2) Decreased libido: Code(s): R68.82 - Decreased libido Category: Medical Plan Recent testosterone labs were reviewed with the patient today; as noted above. He currently denies any bothersome urinary issues or concerns. He reports be happy with current voiding parameters. We did discussed potential causes of borderline low testosterone as well as further treatment options and risks and benefits of these treatment options. Will obtain FSH, estradiol, SHBG, LH, testosterone, and free testosterone for further assessment evaluation. Start low-dose Cialis as discussed and prescribed. We discussed lifestyle modifications to assist with borderline low testosterone. Follow-up in 1-2 months with labs to be completed prior; or sooner with any issues, concerns, and or questions. Orders: Orders Prostate Specific Antigen 10/06/24 E29.1 - Testicular hypofunction Follicle Stimulating Hormone 10/06/24 E29.1 - Testicular hypofunction Estrad Free (Tot Ultra + Free) 10/06/24 E29.1 - Testicular hypofunction Sex Hormone Binding Globulin 10/06/24 E29.1 - Testicular hypofunction Lutenizing Hormone 10/06/24 E29.1 - Testicular hypofunction Prolactin 10/06/24 E29.1 - Testicular hypofunction Testosterone, Free/Total 10/06/24 E29.1 - Testicular hypofunction Medications: New tadalafil (Cialis) [id number] [facility] [id number] Member [id number] 5 mg PO DAILY 90 tabs 1RF 90 days E29.1 - Testicular hypofunction Patient Instructions: The patient had an opportunity to ask questions regarding the treatment plan. All questions were answered. Physical exam, labs, and imaging were discussed and reviewed in detail. As well as risks, benefits, and discussion of treatment choices. No major barriers to understanding were identified. The patient expressed understanding and agreement with the above treatment plan. The patient was made aware they should contact our office by phone for worsening of their current condition, the appearance of new symptoms, or with any questions or concerns. Compliance is encouraged with any medications and follow up testing that is ordered. It is a privilege to be allowed the opportunity to participate in? your urological care.? Again, if you have any questions or concerns If you have any questions or concerns please do not hesitate to contact me. The office is [phone]. This note is constructed using voice recognition software. While every effort has been made to ensure accuracy diet supervisor errors may have been included. Yours sincerely, JOANNA Rosas Coding Level of Care Code New Pt Level 4 (84217) Diagnoses Hypogonadism in male E29.1 Decreased libido R68.82
== END 2024-10-06 08:36 | disposition home or self-care (01) ==
LOC: HO.HUSH 08:01
PROVIDERS: Visit Provider Nurse Practitioner Family
DX: E29.1 Testicular hypofunction (principal); R68.82 Decreased libido
CPT/HCPCS: 99204

== ENCOUNTER → 2024-10-06 08:00 | Outpatient (BNVA) | payer OTHER, SELFPAY | PROVIDERS: Visit Provider Nurse Practitioner Family | DX: E29.1 Testicular hypofunction (principal); R68.82 Decreased libido | CPT/HCPCS: 99202 ==

== ENCOUNTER 2024-12-01 07:57 | Outpatient (REF) | payer OTHER, SELFPAY ==
[2024-12-01 08:49] LABS: Alanine Aminotransferase 34 U/L (0-40); Albumin Level 4.6 g/dL (3.5-5.0); Alkaline Phosphatase 61 U/L (39-117); Anion Gap 8 (12-20); Aspartate Amino Transferase 31 U/L (5-37); Blood Urea Nitrogen 14 mg/dL (9-16); Calcium 9.2 mg/dL (8.4-10.2); Carbon Dioxide 26 mmol/L (22-29); Chloride 107 mmol/L (96-108); Estimated Glomerular Filt Rate > 60; Potassium 3.7 mmol/L (3.3-5.1); Sodium 137 mmol/L (135-145); Total Protein 7.1 g/dL (6.5-8.0)
[2024-12-01 09:13] LABS: Prostate Specific Antigen 0.41 ng/mL (<0.05-4.0)
[2024-12-02 07:13] LABS: Follicle Stimulating Hormone 5.6 mIU/mL (1.4-12.8)
[2024-12-07 07:38] LABS: Testosterone, Free 71.2 pg/mL (35.0-155.0)
[2024-12-13 03:13] LABS: Estradiol Free 0.45 pg/mL; Estradiol, Ultrasensitive 19 pg/mL (< OR = 29)
== END 2024-12-01 07:58 | disposition home or self-care (01) ==
LOC: HO.LAB 07:57
PROVIDERS: Visit Provider Nurse Practitioner Family
DX: I10 Essential (primary) hypertension (principal); E29.1 Testicular hypofunction; R79.89 Other specified abnormal findings of blood chemistry
CPT/HCPCS: 36415; 80053; 82670; 82681; 83001; 83002; 84146; 84153; 84270; 84402; 84403

== ENCOUNTER 2024-12-09 15:39 | Outpatient (AMB) | payer OTHER, SELFPAY ==
--- NOTE | 2024-12-09 15:39 | A.OFFVIS_ITS ---
Intake Visit Reasons: 2 mo follow up with labs Intake Note: Patient is present for 2M/LABS Urology Medication:TADALAFIL Antibiotic Allergy:NONE Blood Thinner:NONE Retail Consultant Required: No Allergies No Known Allergies Allergy (Verified 12/09/24 21:17) Medication List - Last Reconciled 12/09/24 by MILAGROS RosasP- albuterol sulfate 90 mcg/actuation 2 puffs inhalation Q6H PRN fluticasone propion-salmeterol 100-50 mcg/dose (Advair Diskus) 1 inh inhalation BID fluticasone propionate 50 mcg/actuation (Flonase Allergy Relief) 2 sprays intranasal DAILY lisinopril 5 mg PO DAILY loratadine (Claritin) 10 mg PO DAILY sertraline 50 mg PO DAILY tadalafil (Cialis) 5 mg PO DAILY 90 days trazodone 50 mg PO BEDTIME HPI Comments Details: Dave is a very pleasant 39-year-old male patient of . He has a past medical history of testicular torsion, asthma, depression, hypertension and elevated LFTs. He is being followed up on today via video telehealth for his borderline low testosterone. In discussion with the patient today he reports to be doing and feeling well. He does continue to experience issues with low libido. During last office visit recommendations were made for labs for further assessment evaluation in the patient was started on low-dose Cialis. However, in discussion with the patient today he reports he was unable to obtain prescription however he does plan to do so. Recent labs were reviewed with the patient today as noted and trended below: Testosterone: 07/20 271, 12/20 369 Free testosterone: 07/20 48.8 PSA: 12/20 0.4 Estradiol: pending FSH: 12/20 5.6 LH: 12/20 5.3 Prolactin: 12/20 8.4 SHB/25 19 He discusses having gone through a breakup last year and shortly after was diagnosed with depression. We discussed potential causes of low libido as well as trial of stimulation testing with Clomid verses low-dose Cialis versus surveillance monitoring. Risks and benefits of these interventions were di scussed. We also discussed lifestyle modifications to assist with low libido as well as borderline low testosterone. He otherwise denies any bothersome urinary issues. He denies urinary urgency, urinary frequency, incontinence, nocturia, hematuria, dysuria, foul smelling urine, changes to urinary stream, flank pain, fever, and or chills. He is happy with his current voiding parameters. All questions were answered. When asked he denies any recreational drug use, anabolic steroids, or previous illness that could have caused hypogonadism. However, he does have a previous history of testicular torsion. He otherwise offers no other issues or concerns at this time. [facility] Medical History Testicular torsion Family History Other Diabetes FH: mental illness Mental health disorder Social History Housing: Apartment Alcohol intake: never Patient Tobacco Use Status: Never used Tobacco e-Cigarette/Vaping Use: Never Used Second Hand Smoke Exposure: No service: No Current occupational status: employed Current occupational exposures/hazards: No Cognitive needs: No Hearing needs: No Vision needs: Yes Review of Systems Const All systems reviewed & are unremarkable except as noted in HPI and below Physical Exam Const General: cooperative, healthy appearing, comfortable, no acute distress, well developed, alert and awake Orientation/consciousness: patient oriented x3 Resp Effort & Inspection: normal respiratory effort and able to speak in complete sentences Neuro General: patient oriented x3 Psych Appearance: well kempt Speech and movement: Clear speech present Affect: normal affect Attitude: cooperative Insight: Fair insight present (Psych) Judgement: Fair judgement present (Psych) Telehealth Telehealth Telehealth Platform: Telephone Location of provider rendering services: practice address Location of patient: address on file Patient Identification confirmed using: Name, : Yes Telehealth method: video Patient verbally consented to treatment: Yes Patient verbally consented to billing insurance company: Yes Patient informed of any privacy concerns related to visit: Yes Minutes spent on Phone/Video with Pt.: 15 Assessment & Plan Assessment & Plan (1) Low testosterone: Code(s): R79.89 - Other specified abnormal findings of blood chemistry Category: Medical (2) Hypogonadism in male: Code(s): E29.1 - Testicular hypofunction Category: Medical (3) Decreased libido: Code(s): R68.82 - Decreased libido Category: Medical Plan Recent labs reviewed with the patient today; as noted above. He currently denies any bothersome urinary issues or concerns. He reports be happy with current voiding parameters. We did discussed potential causes of borderline low testosterone as well as further treatment options and risks and benefits of these treatment options. Start low-dose Cialis as discussed and prescribed. We discussed lifestyle modifications to assist with borderline low testosterone. Follow-up in 3-6 months with labs to be completed prior; or sooner with any issues, concerns, and or questions. Orders: Orders Testosterone, Free/Total 3 Months E29.1 - Testicular hypofunction, R79.89 - Other specified abnormal findings of blood chemistry Medications: [id number] [id number] 5 mg PO DAILY 90 days 90 tabs 1RF To tadalafil (Cialis) [id number] [facility]33 Member [id number] 5 mg PO DAILY 90 tabs 1RF 90 days Patient Instructions: The patient had an opportunity to ask questions regarding the treatment plan. All questions were answered. Physical exam, labs, and imaging were discussed and reviewed in detail. As well as risks, benefits, and discussion of treatment choices. No major barriers to understanding were identified. The patient expressed understanding and agreement with the above treatment plan. The patient was made aware they should contact our office by phone for worsening of their current condition, the appearance of new symptoms, or with any questions or concerns. Compliance is encouraged with any medications and follow up testing that is ordered. It is a privilege to be allowed the opportunity to participate in? your urological care.? Again, if you have any questions or concerns If you have any questions or concerns please do not hesitate to contact me. The office is [phone]. This note is constructed using voice recognition software. While every effort has been made to ensure accuracy digital cartographer errors may have been included. Yours sincerely, JOANNA Rosas Coding Level of Care Code Tele Est Pt Level 3 (68832) Diagnoses Low testosterone R79.89 Hypogonadism in male E29.1 Decreased libido R68.82
== END 2024-12-09 16:26 | disposition home or self-care (01) ==
LOC: HO.HUSH 15:39
PROVIDERS: Visit Provider Nurse Practitioner Family
DX: R79.89 Other specified abnormal findings of blood chemistry (principal); E29.1 Testicular hypofunction; R68.82 Decreased libido
CPT/HCPCS: 99213